=== PATIENT | female | born 1940 | race Caucasian/White ===

== ENCOUNTER → 2017-04-29 | Outpatient (CLI) | payer MEDICARE, OTHER ==
--- NOTE | 2017-04-29 13:14 | RADIOLOGY REPORT (SQ) ---
EXAM DESCRIPTION: SHOULDER RIGHT 2 OR MORE VIEWS COMPLETED DATE/TIME: 04/29/2017 12:57 pm REASON FOR STUDY: PAIN IN RIGHT SHOULDER M25.511 PAIN IN RIGHT SHOULDER M54.2 CERVICALGIA COMPARISON: None. NUMBER OF VIEWS: Three views. TECHNIQUE: Internal rotation, external rotation, and Y view images acquired of the right shoulder. LIMITATIONS: None. FINDINGS: MINERALIZATION: Normal. BONES: No acute fracture or dislocation. No worrisome bone lesions. JOINTS: There is narrowing of the glenohumeral joint. Subchondral cysts are seen in the humeral head and in the inferior aspect of the glenoid. Small marginal osteophyte is seen in the humeral head. VISUALIZED LUNGS AND RIBS: No pneumothorax. No rib fracture. SOFT TISSUES: No radiopaque foreign body. OTHER: No other significant finding. IMPRESSION: Glenohumeral degenerative joint disease. TECHNICAL DOCUMENTATION: JOB ID: [id number] [employer]- All Rights Reserved
--- NOTE | 2017-04-29 15:24 | RADIOLOGY REPORT (SQ) ---
EXAM DESCRIPTION: C SP 4 OR 5 VIEWS COMPLETED DATE/TIME: 04/29/2017 12:57 pm REASON FOR STUDY: PAIN IN RIGHT SHOULDER M25.511 PAIN IN RIGHT SHOULDER M54.2 CERVICALGIA COMPARISON: None. NUMBER OF VIEWS: Five views. TECHNIQUE: AP, lateral, obliques and odontoid radiographic images acquired of the cervical spine. LIMITATIONS: None. FINDINGS: MINERALIZATION: Osteopenia. ALIGNMENT: There is straightening of the upper cervical spine. VERTEBRAE: No acute compression changes are present. DISCS: Disc spaces are narrowed at C4-5 and C5-6. Uncovertebral osteophytes are present at these lev els. FORAMINA: There is mild narrowing of the right neural foramen at C4-5 secondary to uncovertebral oste ophytes and mild facet overgrowth. There is narrowing of the left neural foramina at C3-4 and C4-5 s econdary to uncovertebral osteophytes mild facet changes. LATERAL AND POSTERIOR ELEMENTS: Mild hypertrophic facet changes are present at multiple levels. HARDWARE: None in the spine. SOFT TISSUES: No masses or calcifications. Lung apices clear. OTHER: No other significant finding. IMPRESSION: Degenerative disc disease, spondylosis, and facet arthropathy as described. TECHNICAL DOCUMENTATION: JOB ID: [id number] [employer]- All Rights Reserved
== END ==
LOC: OD 12:30
PROVIDERS: ATTEND Physician Assistant
DX: M25.511 Pain in right shoulder (principal); M54.2 Cervicalgia
CPT/HCPCS: 72050

== ENCOUNTER → 2017-05-10 | Outpatient (CLI) | payer MEDICARE, OTHER ==
--- NOTE | 2017-05-10 10:34 | WOMENS IMAGING REPORT ---
EXAM DESCRIPTION: BONE DENSITY HIP/SPINE COMPLETED DATE/TIME: 05/10/2017 10:16 am REASON FOR STUDY: OSTEOPOROSIS; M81.0 Z12.31 ENCNTR SCREEN MAMMOGRAM FOR MALIGNANT NEOPLASM OF MEHUL M81.0 AGE-RELATED OSTEOPOROSIS W/O CURRENT PATHOLOGICAL FRAC COMPARISON: 07/30/2014 TECHNIQUE: Dual-Energy X-ray Absorptiometry (DEXA) of the AP Spine and Hip. LIMITATIONS: None. FINDINGS: LUMBAR SPINE: The bone mineral density (BMD) measured from L1-L4 in the AP projection correlates with a T-score of -3, which is osteoporosis as defined by the World Health Organization. -3.5% change since prior stud y. HIP: The bone mineral density (BMD) measured in the left hip correlates with a T-score of -3.3 in the femo ral neck, which is osteoporosis as defined by the World Health Organization. -4.4% change since prio r study. IMPRESSION: 1. LUMBAR SPINE: OSTEOPOROSIS. 2. HIP: OSTEOPOROSIS. COMMENT: The World Health Organization defines low BMD as follows: T-score: Normal: Greater than -1.0 Osteopenia: Between -1.0 and -2.5 Osteoporosis: Less than -2.5 without fractures Established osteoporosis: Less than -2.5 with fractures In general, you may wish to consider: Diagnosis Treatment Follow-up DEXA Normal BMD Prevention 2-3 years Osteopenia Prevention/Therapy 1-2 years Osteoporosis Therapy Yearly TECHNICAL DOCUMENTATION: JOB ID: [id number] [employer]- All Rights Reserved
--- NOTE | 2017-05-10 11:05 | WOMENS IMAGING REPORT ---
EXAM DESCRIPTION: 3D SCREENING MAMMO BILAT COMPLETED DATE/TIME: 05/10/2017 10:16 am REASON FOR STUDY: ROUTINE SCREENING; Z12.31 Z12.31 ENCNTR SCREEN MAMMOGRAM FOR MALIGNANT NEOPLASM O F MEHUL M81.0 AGE-RELATED OSTEOPOROSIS W/O CURRENT PATHOLOGICAL FRAC COMPARISON: 11/25/2015 TECHNIQUE: Standard craniocaudal and mediolateral oblique views of each breast recorded using digita l acquisition and breast tomosynthesis. LIMITATIONS: Pacemaker left. FINDINGS: Findings present which are benign by mammographic criteria. No suspicious masses, calcifi cations or architectural distortion. Pertinent benign findings: Calcifications both breasts. Read with the assistance of CAD. .[facility] - R2 Cenova Version 1.3 .[facility] - R2 Cenova Version 1.3 .[facility] - R2 Cenova Version 2.4 .[facility] - R2 Cenova Version 2.4 .[facility] - R2 [employer] Version 9.2 Benign mammographic findings may include one or more of the following: Smooth masses, popcorn/rim/co arse calcifications, asymmetries, post-procedure changes, and lesions with long-standing stability. IMPRESSION: BENIGN MAMMOGRAPHIC FINDINGS. BIRADS 2 BREAST DENSITY: c. The breasts are heterogeneously dense, which may obscure small masses. BIRAD: 2 BENIGN FINDING(S) RECOMMENDATION: RECOMMENDATION: ROUTINE SCREENING COMMENT: The patient has been notified of the results by letter per SA requirements. Additional no tification policies are in place for contacting patient with suspicious or incomplete findings. Quality ID #[id number]: The [employer] recommends an annual screening mammogram for women aged 40 years or over. This facility utilizes a reminder system to ensure that all patients receive reminder letters, and/or direct phone calls for appointments. This includes reminders for routine scr eening mammograms, diagnostic mammograms, or other Breast Imaging Interventions when appropriate. Th is patient will be placed in the appropriate reminder system. The [employer] (ACR) has developed recommendations for screening MRI of the breast s in certain patient populations, to be used in conjunction with mammography. Breast MRI surveillanc e may be appropriate for women with more than 20% lifetime risk of developing breast cancer as deter mined by genetic testing, significant family history of the disease, or history of mantle radiation f or Hodgkins Disease. ACR Practice Guidelines 2008. DBT Technology DBT is a type of tomographic mammography. With conventional mammography, overlapping breast tissue ma y make lesions difficult to detect, even with good compression. DBT uses an x-ray tube that rotates a round the breast, taking images at different angles. These images are then combined to create thin sl ices of the breast that the radiologist can view as a 3D reconstruction. The Hologic unit can perform full-field digital mammograms (2D imaging); or DBT (3D imaging); or both, in a combination mode that quickly performs both the mammogram and the tomosynthesis scan while the breast is still compressed. PQRS 6045F: Fluoroscopic imaging is not utilized for breast tomosynthesis. TECHNICAL DOCUMENTATION: FINDING NUMBER: (1) ASSESSMENT: (1) JOB ID: [id number] [employer]- All Rights Reserved
== END ==
LOC: WI 09:58
PROVIDERS: ATTEND Physician Assistant
DX: Z12.31 Encounter for screening mammogram for malignant neoplasm of breast (principal); M81.0 Age-related osteoporosis without current pathological fracture
CPT/HCPCS: 77063; 77080; G0202; 77067

== ENCOUNTER 2017-06-23 19:47 | Emergency (ER) | payer MEDICARE, OTHER ==
[2017-06-23] MEDS ORDERED: CLINDAMYCIN HCL 150 MG CAPSULE PO ONE (20:19)
--- NOTE | 2017-06-23 20:26 | ER Document Report ---
ED Extremity Problem, Lower - General Mode of Arrival: Wheelchair Information source: Patient TRAVEL OUTSIDE OF THE [place] IN LAST 30 DAYS: No <MELITON MARQUEZ - Last Filed: 06/23/17 20:56> <INDER WILKERSON - Last Filed: 06/23/17 21:12> - General Chief Complaint: Pedal Edema Stated Complaint: LEFT LEG SWELLING AND PAIN Time Seen by Provider: 06/23/17 20:09 Notes: Patient is a 76 year old female presenting to the emergency department for swelling, erythema and pain to her left lower extremity. Patient states that she noticed it Saturday and it has been getting slightly worse. Patient states that she has a dullness going up her left leg. Patient states she is on plavix and she had a recent heart valve transplant at [facility]. Patient is also taking Fosamax. (MELITON MARQUEZ) - Related Data Allergies/Adverse Reactions: benzocaine Allergy (Verified 06/23/17 20:24) ciprofloxacin [From Cipro] Allergy (Verified 06/23/17 20:24) lamotrigine [From Lamictal] Allergy (Verified 06/23/17 20:24) Penicillins Allergy (Verified 06/23/17 20:24) Sulfa (Sulfonamide Antibiotics) Allergy (Verified 06/23/17 20:24) Past Medical History - General Information source: Patient - Social History Smoking Status: Never Smoker Cigarette use (# per day): No Chew tobacco use (# tins/day): No Smoking Education Provided: No Frequency of alcohol use: None Drug Abuse: None Family History: None Patient has suicidal ideation: No Patient has homicidal ideation: No - Past Medical History Cardiac Medical History: Reports: Hx Hypertension Neurological Medical History: Reports: Hx Seizures Past Surgical History: Reports: Hx Abdominal Surgery - hiatal hernia, Hx Breast Surgery - biopsy, Hx Cardiac Surgery - mitral valve replacement, pacemaker, stent, Hx Orthopedic Surgery - knee - Immunizations Hx Diphtheria, Pertussis, Tetanus Vaccination: No <MELITON MARQUEZ - Last Filed: 06/23/17 20:56> Review of Systems - Review of Systems Constitutional: denies: Fever Musculoskeletal: See HPI Skin: See HPI Neurological/Psychological: No symptoms reported <MELITON MARQUEZ - Last Filed: 06/23/17 20:56> Physical Exam <MELITON MARQUEZ - Last Filed: 06/23/17 20:56> <INDER WILKERSON - Last Filed: 06/23/17 21:12> - Vital signs Vitals: Temp Pulse Resp BP Pulse Ox 98.4 F 76 18 177/67 H 97 06/23/17 19:58 06/23/17 19:58 06/23/17 19:58 06/23/17 19:58 06/23/17 19:58 - Notes Notes: GENERAL: Alert, interacts well. Mild distress. HEAD: Normocephalic, atraumatic. EYES: Pupils equal, round, and reactive to light. Extraocular movements intact. ENT: Oral mucosa moist, tongue midline. NECK: Full range of motion. Supple. Trachea midline. LUNGS: Clear to auscultation bilaterally, no wheezes, rales, or rhonchi. No respiratory distress. HEART: Regular rate and rhythm. 3/6 crescendo systolic murmur, best heard in the right upper sternal border. ABDOMEN: Soft, non-tender. Non-distended. Bowel sounds present in all 4 quadrants. EXTREMITIES: Moves all 4 extremities spontaneously. Circumferential erythema at the level of the left ankle just distal to the bilateral malleoli and anteriorly tracks along the left jasmine just below the knee. Area is tender to palpate, warm to touch, non-pitting edema, no discharge, no fluctuance. NEUROLOGICAL: Alert and oriented x3. Normal speech. PSYCH: Normal affect, normal mood. SKIN: Warm, dry, normal turgor. See extremity exam. (MELITON MARQUEZ) Course - Laboratory Result Diagrams: 06/23/17 20:36 <MELITON MARQUEZ - Last Filed: 06/23/17 20:56> - Laboratory Result Diagrams: 06/23/17 20:36 <INDER WILKERSON - Last Filed: 06/23/17 21:12> - Re-evaluation Re-evalutation: 06/23/17 20:58 Heart valve replacement was within the past year but not within the past few months therefore not a significant risk for DVT. No leukocytosis, no evidence of DVT, I will treat the patient with clindamycin as she is allergic to multiple antibiotics but does have a history of MRSA. Patient will be rechecked by her primary care physician within the next 48 hours and return for fevers. (INDER WILKERSON) - Vital Signs Vital signs: Temp Pulse Resp BP Pulse Ox 98.4 F 76 18 177/67 H 97 06/23/17 19:58 06/23/17 19:58 06/23/17 19:58 06/23/17 19:58 06/23/17 19:58 Discharge <MELITON MARQUEZ - Last Filed: 06/23/17 20:56> <INDER WILKERSON - Last Filed: 06/23/17 21:12> - Discharge Clinical Impression: Cellulitis of left leg without foot Hypertension Qualifiers: Hypertension type: essential hypertension Qualified Code(s): I10 - Essential ( primary) hypertension Condition: Stable Disposition: HOME, SELF-CARE Additional Instructions: Keep your leg elevated, take the clindamycin as directed, return for fevers or worsening of the redness. Be rechecked by your primary care physician within the next 48 hours. Prescriptions: Clindamycin HCl 300 mg PO QID #28 capsule Scribe Attestation: 06/23/17 21:12 I personally performed the services described in the documentation, reviewed and edited the documentation which was dictated to the scribe in my presence, and it accurately records my words and actions. (INDER WILKERSON) Scribe Documentation - Scribe Written by Adolfo:: Adolfo Smalls 06/23/17 20:55 acting as scribe for :: Fredy <MELITON MARQUEZ - Last Filed: 06/23/17 20:56>
[2017-06-23 20:46] LABS: ABSOLUTE BASOPHILS # (AUTO) 0.1 10^3/uL (0.0-0.2); ABSOLUTE EOSINOPHILS # (AUTO) 0.2 10^3/uL (0.0-0.6); ABSOLUTE LYMPHOCYTES (AUTO) 1.9 10^3/uL (0.5-4.7); ABSOLUTE MONOCYTES (AUTO) 1.1 10^3/uL (0.1-1.4); ABSOLUTE NEUT (AUTO) 5.8 10^3/uL (1.7-8.2); BASOPHILS % (AUTO) 1.2 % (0-2); EOSINOPHILS % (AUTO) 2.2 % (0-6); HEMATOCRIT 41.8 % (36.0-47.0); HEMOGLOBIN 14.4 g/dL (12.0-15.5); HGB HCT DIFFERENCE 1.4; LYMPHOCYTES % (AUTO) 20.9 % (13-45); MEAN CORPUSCULAR HEMOGLOBIN 31.5 pg (27.0-33.4); MEAN CORPUSCULAR HGB CONC 34.4 g/dL (32.0-36.0); MEAN CORPUSCULAR VOLUME 92 fl (80-97); MONOCYTES % (AUTO) 12.2 % (3-13); RED BLOOD COUNT 4.56 10^6/uL (3.72-5.28); SEGMENTED NEUTROPHILS % (AUTO) 63.5 % (42-78); WHITE BLOOD COUNT 9.1 10^3/uL (4.0-10.5)
[2017-06-23 21:40] VITALS: BP 151/76
== END 2017-06-23 21:40 | disposition home or self-care (01) ==
LOC: ER 19:47
DX: L03.116 Cellulitis of left lower limb (principal); R60.9 Edema, unspecified; M79.605 Pain in left leg; I10 Essential (primary) hypertension; Z88.3 Allergy status to other anti-infective agents; Z88.0 Allergy status to penicillin; Z88.2 Allergy status to sulfonamides; Z95.2 Presence of prosthetic heart valve; Z95.0 Presence of cardiac pacemaker; Z86.14 Personal history of Methicillin resistant Staphylococcus aureus infection
CPT/HCPCS: 99284; 36415; 85025; A9270

== ENCOUNTER → 2017-10-07 | Outpatient (CLI) | payer MEDICARE, OTHER ==
[2017-10-07 12:38] LABS: CHOLESTEROL 276.49 mg/dL (0-200); TRIGLYCERIDES 72 mg/dL (<150)
[2017-10-07 12:49] LABS: DIRECT LDL 158 mg/dL (<100)
== END ==
LOC: OD 11:47
PROVIDERS: ATTEND Internal Medicine
DX: I25.10 Atherosclerotic heart disease of native coronary artery without angina pectoris (principal); E78.4 Other hyperlipidemia; Z98.61 Coronary angioplasty status; Z95.2 Presence of prosthetic heart valve; I34.2 Nonrheumatic mitral (valve) stenosis; I10 Essential (primary) hypertension; I34.0 Nonrheumatic mitral (valve) insufficiency; I44.2 Atrioventricular block, complete; Z95.0 Presence of cardiac pacemaker; Z79.899 Other long term (current) drug therapy
CPT/HCPCS: 36415; 80061

== ENCOUNTER 2017-11-14 10:03 | Emergency (ER) | payer MEDICARE, OTHER ==
--- NOTE | 2017-11-14 10:21 | ER Document Report ---
ED Medical Screen (RME) - General Chief Complaint: Altered Mental Status Stated Complaint: HEADACHE, CONFUSION Time Seen by Provider: 11/14/17 10:19 Mode of Arrival: Wheelchair Information source: Patient, Parent Notes: 77 yr old female presents altered, pt was on plavix, stopped it for procedure, hit her head yesterday. I have greeted and performed a rapid initial assessment of this patient. A comprehensive ED assessment and evaluation of the patient, analysis of test results and completion of the medical decision making process will be conducted by additional ED providers. PHYSICAL EXAMINATION: GENERAL: elderly female HEAD: Atraumatic, normocephalic. EYES: Pupils equal round extraocular movements intact, conjunctiva are normal. ENT: Nares patent NECK: Normal range of motion LUNGS: No respiratory distress Musculoskeletal: Normal range of motion NEUROLOGICAL: Normal speech, normal gait. PSYCH: Normal mood, normal affect. SKIN: Warm, Dry, normal turgor, no rashes or lesions noted. TRAVEL OUTSIDE OF THE [place] IN LAST 30 DAYS: No - Related Data Allergies/Adverse Reactions: benzocaine Allergy (Verified 06/23/17 20:24) ciprofloxacin [From Cipro] Allergy (Verified 06/23/17 20:24) lamotrigine [From Lamictal] Allergy (Verified 06/23/17 20:24) Penicillins Allergy (Verified 06/23/17 20:24) Sulfa (Sulfonamide Antibiotics) Allergy (Verified 06/23/17 20:24) Past Medical History - Past Medical History Cardiac Medical History: Reports: Hx Hypertension Neurological Medical History: Reports: Hx Seizures Renal/ Medical History: Denies: Hx Peritoneal Dialysis Past Surgical History: Reports: Hx Abdominal Surgery - hiatal hernia, Hx Breast Surgery - biopsy, Hx Cardiac Surgery - mitral valve replacement, pacemaker, stent, Hx Orthopedic Surgery - knee - Immunizations Hx Diphtheria, Pertussis, Tetanus Vaccination: No History of Influenza Vaccine for 06/2017 - 11/2017 Season: Refused Physical Exam - Vital signs Vitals: Temp Pulse Resp BP Pulse Ox 97.9 F 66 14 150/69 H 98 11/14/17 10:10 11/14/17 10:10 11/14/17 10:10 11/14/17 10:10 11/14/17 10:10 Course - Vital Signs Vital signs: Temp Pulse Resp BP Pulse Ox 97.9 F 66 14 150/69 H 98 11/14/17 10:10 11/14/17 10:10 11/14/17 10:10 11/14/17 10:10 11/14/17 10:10
--- NOTE | 2017-11-14 11:28 | RADIOLOGY REPORT (SQ) ---
EXAM DESCRIPTION: CT HEAD WITHOUT COMPLETED DATE/TIME: 11/14/2017 10:44 am REASON FOR STUDY: altered COMPARISON: None. TECHNIQUE: Axial images acquired through the brain without intravenous contrast. Images reviewed wi th bone, brain and subdural windows. Images stored on PACS. All CT scanners at this facility use dose modulation, iterative reconstruction, and/or weight based d osing when appropriate to reduce radiation dose to as low as reasonably achievable (ALARA). [facility]: Dose Right [facility]: CareDose [facility]: Dose Right [facility]: Teradose 4D [facility]: Berrybenka RADIATION DOSE: CT Rad equipment meets quality standard of care and radiation dose reduction techniq ues were employed. CTDIvol: 49.0 mGy. DLP: 783 mGy-cm.mGy. LIMITATIONS: None. FINDINGS: VENTRICLES: Prominent. CEREBRUM: No masses. No hemorrhage. No midline shift. Areas of low density in the white matter mos t likely due to chronic micro-vascular ischemic change. No evidence for acute infarction. CEREBELLUM: No masses. No hemorrhage. No alteration of density. No evidence for acute infarction. EXTRAAXIAL SPACES: Age-related involutional change. No fluid collections. No masses. ORBITS AND GLOBE: No intra- or extraconal masses. Normal contour of globe without masses. CALVARIUM: No fracture. PARANASAL SINUSES: No fluid or mucosal thickening. SOFT TISSUES: No mass or hematoma. OTHER: No other significant finding. IMPRESSION: CHRONIC CHANGES OF ATROPHY AND MICROVASCULAR ISCHEMIA. NO ACUTE PROCESS. EVIDENCE OF ACUTE STROKE: NO. TECHNICAL DOCUMENTATION: JOB ID: [id number] Quality ID # [id number]: Final reports with documentation of one or more dose reduction techniques (e.g., Au tomated exposure control, adjustment of the mA and/or kV according to patient size, use of iterative reconstruction technique) 2010 [employer]- All Rights Reserved Reading location - IP/workstation name: [email or web address]
--- NOTE | 2017-11-14 12:25 | RADIOLOGY REPORT (SQ) ---
EXAM DESCRIPTION: CHEST PA/LAT COMPLETED DATE/TIME: 11/14/2017 11:01 am REASON FOR STUDY: altered COMPARISON: 2009 EXAM PARAMETERS: NUMBER OF VIEWS: two views TECHNIQUE: Digital Frontal and Lateral radiographic views of the chest acquired. RADIATION DOSE: NA LIMITATIONS: none FINDINGS: LUNGS AND PLEURA: No opacities, masses or pneumothorax. No pleural effusion. MEDIASTINUM AND HILAR STRUCTURES: Postoperative changes with transvenous pacer. HEART AND VASCULAR STRUCTURES: Heart is borderline for size, appearing smaller than on prior study 20 10. Operative change noted. BONES: Kyphotic thoracic spine. No severe compression fractures identified. HARDWARE: The transvenous pacer. Operative valve change the heart. OTHER: No other significant finding. IMPRESSION: Nothing acute. The heart appears smaller than on prior study. Transvenous pacer and op erative change noted. TECHNICAL DOCUMENTATION: JOB ID: [id number] [employer]- All Rights Reserved Reading location - IP/workstation name: [email or web address]
--- NOTE | 2017-11-14 12:39 | ER Document Report ---
ED General - General Chief Complaint: Altered Mental Status Stated Complaint: HEADACHE, CONFUSION Time Seen by Provider: 11/14/17 10:19 Mode of Arrival: Wheelchair TRAVEL OUTSIDE OF THE [place] IN LAST 30 DAYS: No - HPI Patient complains to provider of: headache/confusion Onset: Yesterday Onset/Duration: Gradual Notes: Patient presents here with her daughter. She states that she was on Plavix for approximately 1 year for an aortic valve replacement and it was discontinued the of this month. She saw her business management professor after having a stress test on the and he took her off the Plavix at that time. States this past Saturday she was sitting on her daughter's bed talking to her and she was bent over perhaps looking at her cat when she brought her head up and hit her left latter-day area. Yesterday patient states she was watching [facility] [employer] which she does almost daily. She states that the story line was not making any sense and at one time she thought the characters in the commercial or actually on her soap opera. The daughter stated she had difficulty trying to find the buttons on the removed to turn off the TV. Patient states around that time headache developed. It was global in nature. There is no visual deficits. Patient did have nausea and emesis 1. She states this morning when she awoke she had a mild headache and she was slightly confused. The daughter drove her to the emergency department she states she could not really recall the way and she should know it. - Related Data Allergies/Adverse Reactions: benzocaine Allergy (Verified 06/23/17 20:24) ciprofloxacin [From Cipro] Allergy (Verified 06/23/17 20:24) lamotrigine [From Lamictal] Allergy (Verified 06/23/17 20:24) Penicillins Allergy (Verified 06/23/17 20:24) Sulfa (Sulfonamide Antibiotics) Allergy (Verified 06/23/17 20:24) Past Medical History - General Information source: Patient, Parent - Social History Smoking Status: Never Smoker Frequency of alcohol use: None Drug Abuse: None Family History: None Patient has suicidal ideation: No Patient has homicidal ideation: No - Past Medical History Cardiac Medical History: Reports: Hx Hypertension Neurological Medical History: Reports: Hx Seizures Endocrine Medical History: Reports: None Renal/ Medical History: Reports: None. Denies: Hx Peritoneal Dialysis Malignancy Medical History: Reports: None GI Medical History: Reports: None Psychiatric Medical History: Reports: None Traumatic Medical History: Reports: None Past Surgical History: Reports: Hx Abdominal Surgery - hiatal hernia, Hx Breast Surgery - biopsy, Hx Cardiac Surgery - mitral valve replacement, pacemaker, stent, Hx Orthopedic Surgery - knee - Immunizations Hx Diphtheria, Pertussis, Tetanus Vaccination: No Review of Systems - Review of Systems Constitutional: No symptoms reported EENT: No symptoms reported Cardiovascular: No symptoms reported Respiratory: No symptoms reported Gastrointestinal: Nausea, Vomiting Genitourinary: No symptoms reported Female Genitourinary: No symptoms reported Musculoskeletal: No symptoms reported Skin: No symptoms reported Hematologic/Lymphatic: No symptoms reported Neurological/Psychological: See HPI, Confusion, Headaches. denies: Dementia, Depression, Anxiety, Hallucinations, Sensory change, Weakness, Gait changes, Loss of power, Paralysis, Seizure, Lost consciousness, Speech impairment, Numbness, Tingling, Tremor Physical Exam - Vital signs Vitals: Temp Pulse Resp BP Pulse Ox 97.9 F 66 14 150/69 H 98 11/14/17 10:10 11/14/17 10:10 11/14/17 10:10 11/14/17 10:10 11/14/17 10:10 - Notes Notes: PHYSICAL EXAMINATION: GENERAL: Well-appearing, well-nourished and in no acute distress. HEAD: Atraumatic, normocephalic. EYES: Pupils equal round and reactive to light, extraocular movements intact, conjunctiva are normal. Nystagmus not found. ENT: Nares patent, oropharynx clear without exudates. Moist mucous membranes. NECK: Normal range of motion, supple without lymphadenopathy LUNGS: Breath sounds clear to auscultation bilaterally and equal. No wheezes rales or rhonchi. HEART: Regular rate and rhythm without murmurs ABDOMEN: Soft, nontender, nondistended abdomen. No guarding, no rebound. No masses appreciated. Female : deferred Musculoskeletal: Normal range of motion, no pitting or edema. No cyanosis. NEUROLOGICAL: Cranial nerves grossly intact. Normal speech, normal gait. Normal sensory, motor exams. Cerebellar exam WNL. PSYCH: Normal mood, normal affect. SKIN: Warm, Dry, normal turgor, no rashes or lesions noted. Course - Re-evaluation Re-evalutation: 11/14/17 1302 I discussed LP with patient and her daughter including risks of headcahe, infection, bleeding. pt. states she will think about it and let me know. 11/14/17 14:01 I went back in to again discuss the LP and patient gave consent. i told her that the Ct scan does not 100% rule out a "brain bleed" especially if headache started more than 6 hours ago. Pt.'s headache now started 24 hours ago. 11/14/17 15:00 Pt. tolerated LP without any incident. Afterwards, She stated her headache was improved and "only felt like a mild headache you would take tylenol for" 11/14/17 16:08 Labs- All tests 24 hr 11/14/17 11/14/17 11/14/17 12:17 12:17 12:17 WBC 10.5 RBC 4.40 Hgb 13.4 Hct 39.5 MCV 90 MCH 30.4 MCHC 33.9 RDW 13.7 Plt Count 126 L Seg Neutrophils % 83.0 H Lymphocytes % 9.3 L Monocytes % 6.9 Eosinophils % 0.4 Basophils % 0.4 Absolute Neutrophils 8.7 H Absolute Lymphocytes 1.0 Absolute Monocytes 0.7 Absolute Eosinophils 0.0 Absolute Basophils 0.0 PT 13.3 INR 0.94 VBG pH VBG pCO2 VBG HCO3 VBG Base Excess Sodium 136.5 L Potassium 3.8 Chloride 101 Carbon Dioxide 25 Anion Gap 11 BUN 11 Creatinine 0.50 L Est GFR ( Amer) > 60 Est GFR (Non-Af Amer) > 60 Glucose 117 H Lactic Acid Calcium 8.4 Total Bilirubin 0.7 Direct Bilirubin 0.4 Neonat Total Bilirubin Not Reportable Neonat Direct Bilirubin Not Reportable Neonat Indirect Bili Not Reportable AST 22 ALT 23 Alkaline Phosphatase 81 Total Protein 6.6 Albumin 4.1 Urine Color Urine Appearance Urine pH Ur Specific [place] Urine Protein Urine Glucose (UA) Urine Ketones Urine Blood Urine Nitrite Urine Bilirubin Urine Urobilinogen Ur Leukocyte Esterase Urine WBC (Auto) Urine RBC (Auto) U Hyaline Cast (Auto) Squamous Epi Cells Auto Urine Mucus (Auto) Urine Ascorbic Acid Fluid Tube Number CSF Volume CSF Appearance CSF Color CSF WBC CSF RBC CSF Color (4) CSF Glucose CSF Total Protein 11/14/17 11/14/17 11/14/17 12:17 12:17 13:08 WBC RBC Hgb Hct MCV MCH MCHC RDW Plt Count Seg Neutrophils % Lymphocytes % Monocytes % Eosinophils % Basophils % Absolute Neutrophils Absolute Lymphocytes Absolute Monocytes Absolute Eosinophils Absolute Basophils PT INR VBG pH 7.42 VBG pCO2 42.6 VBG HCO3 27.0 VBG Base Excess 2.2 Sodium Potassium Chloride Carbon Dioxide Anion Gap BUN Creatinine Est GFR ( Amer) Est GFR (Non-Af Amer) Glucose Lactic Acid 1.3 Calcium Total Bilirubin Direct Bilirubin Neonat Total Bilirubin Neonat Direct Bilirubin Neonat Indirect Bili AST ALT Alkaline Phosphatase Total Protein Albumin Urine Color YELLOW Urine Appearance CLEAR Urine pH 7.0 Ur Specific [place] 1.014 Urine Protein NEGATIVE Urine Glucose (UA) NEGATIVE Urine Ketones 20 H Urine Blood NEGATIVE Urine Nitrite NEGATIVE Urine Bilirubin NEGATIVE Urine Urobilinogen NEGATIVE Ur Leukocyte Esterase NEGATIVE Urine WBC (Auto) 2 Urine RBC (Auto) 1 U Hyaline Cast (Auto) 2 Squamous Epi Cells Auto <1 Urine Mucus (Auto) OCC Urine Ascorbic Acid 20 H Fluid Tube Number CSF Volume CSF Appearance CSF Color CSF WBC CSF RBC CSF Color (4) CSF Glucose CSF Total Protein 11/14/17 11/14/17 11/14/17 14:45 14:45 14:45 WBC RBC Hgb Hct MCV MCH MCHC RDW Plt Count Seg Neutrophils % Lymphocytes % Monocytes % Eosinophils % Basophils % Absolute Neutrophils Absolute Lymphocytes Absolute Monocytes Absolute Eosinophils Absolute Basophils PT INR VBG pH VBG pCO2 VBG HCO3 VBG Base Excess Sodium Potassium Chloride Carbon Dioxide Anion Gap BUN Creatinine Est GFR ( Amer) Est GFR (Non-Af Amer) Glucose Lactic Acid Calcium Total Bilirubin Direct Bilirubin Neonat Total Bilirubin Neonat Direct Bilirubin Neonat Indirect Bili AST ALT Alkaline Phosphatase Total Protein Albumin Urine Color Urine Appearance Urine pH Ur Specific [place] Urine Protein Urine Glucose (UA) Urine Ketones Urine Blood Urine Nitrite Urine Bilirubin Urine Urobilinogen Ur Leukocyte Esterase Urine WBC (Auto) Urine RBC (Auto) U Hyaline Cast (Auto) Squamous Epi Cells Auto Urine Mucus (Auto) Urine Ascorbic Acid Fluid Tube Number 1 CSF Volume 4.0 4.0 CSF Appearance CLEAR CLEAR CSF Color COLORLESS CSF WBC 2 5 CSF RBC 52 3 CSF Color (4) COLORLESS CSF Glucose 63 CSF Total Protein 63 H 11/14/17 16:10 Patient states her headache feels even better now. I did go over the results with her and her daughter. I told them to have the patient return if she has any normal symptoms occluded but not limited to slurred speech, blurry vision or loss of vision, weakness in her arms or legs. - Vital Signs Vital signs: Temp Pulse Resp BP Pulse Ox 97.9 F 66 15 150/69 H 97 11/14/17 10:10 11/14/17 10:10 11/14/17 12:00 11/14/17 10:10 11/14/17 12:00 - Laboratory Result Diagrams: 11/14/17 12:17 11/14/17 12:17 Laboratory results interpreted by me: 11/14/17 11/14/17 11/14/17 12:17 12:17 13:08 Plt Count 126 L Seg Neutrophils % 83.0 H Lymphocytes % 9.3 L Absolute Neutrophils 8.7 H Sodium 136.5 L Creatinine 0.50 L Glucose 117 H Urine Ketones 20 H Urine Ascorbic Acid 20 H CSF Total Protein 11/14/17 14:45 Plt Count Seg Neutrophils % Lymphocytes % Absolute Neutrophils Sodium Creatinine Glucose Urine Ketones Urine Ascorbic Acid CSF Total Protein 63 H - Diagnostic Test Radiology reviewed: Image reviewed, Reports reviewed Procedures - Lumbar Puncture Lumbar puncture Time completed: 14:40 Consent obtained: Yes Lumbar puncture pre-procedure: Betadine prep applied Patient position: Sitting Needle size: 20 Lumbar puncture location: L4-L5 Anesthetic type: 1% Lidocaine mL's of anesthetic: 3 Amount/type of drainage: clear Number of attempts: 2 Complications: No Discharge - Discharge Clinical Impression: Confusion with non-focal neuro exam Headache Qualifiers: Headache chronicity pattern: acute headache Intractability: not intractable Condition: Stable Disposition: HOME, SELF-CARE Instructions: Headache ([facility]) Additional Instructions: Follow up with your physician tomorrow for further care or return to the ED IMMEDIATELY if symptoms worsen or new concerns occur. If you cannot afford to follow up with your primary care physician a list of low cost clinics have been provided at the end of your discharge papers as well. Referrals: YULISA CLAYTON MD [Primary Care Provider] - Follow up tomorrow
[2017-11-14 12:41] LABS: ABSOLUTE MONOCYTES (AUTO) 0.7 10^3/uL (0.1-1.4); ABSOLUTE NEUT (AUTO) 8.7 10^3/uL (1.7-8.2); BASOPHILS % (AUTO) 0.4 % (0-2); EOSINOPHILS % (AUTO) 0.4 % (0-6); HEMATOCRIT 39.5 % (36.0-47.0); HEMOGLOBIN 13.4 g/dL (12.0-15.5); LYMPHOCYTES % (AUTO) 9.3 % (13-45); MEAN CORPUSCULAR HEMOGLOBIN 30.4 pg (27.0-33.4); MEAN CORPUSCULAR HGB CONC 33.9 g/dL (32.0-36.0); MEAN CORPUSCULAR VOLUME 90 fl (80-97); MONOCYTES % (AUTO) 6.9 % (3-13); PLATELET COUNT 126 10^3/uL (150-450); RED CELL DISTRIBUTION WIDTH 13.7 % (11.5-14.0); TOTAL CELLS COUNTED % (AUTO) 100 %; VENOUS BLOOD BASE EXCESS 2.2 mmol/L; VENOUS BLOOD PCO2 42.6 mmHg (35-63); VENOUS BLOOD PH 7.42 (7.30-7.42); WHITE BLOOD COUNT 10.5 10^3/uL (4.0-10.5)
[2017-11-14 12:47] LABS: INTERNATIONAL RATION (INR) 0.94; PROTHROMBIN TIME 13.3 SEC (11.4-15.4)
[2017-11-14] MEDS ORDERED: NORMAL SALINE 500 ML IV ONE (12:47)
[2017-11-14] MEDS ORDERED: METOCLOPRAMIDE HCL INJ/PF 10 MG/2 ML SDV IV ONE (12:47)
--- NOTE | 2017-11-14 12:59 | EKG REPORT ---
SEVERITY:- ABNORMAL ECG - ATRIAL-SENSED VENTRICULAR-PACED RHYTHM : Confirmed by: Willard Rob MD 14-Nov-2017 12:58:57
[2017-11-14 13:02] LABS: ALANINE AMINOTRANSFERASE 23 U/L (9-52); ALBUMIN 4.1 g/dL (3.5-5.0); ALKALINE PHOSPHATASE 81 U/L (38-126); ANION GAP 11 (5-19); ASPARTATE AMINO TRANSFERASE 22 U/L (14-36); BILIRUBIN,DIRECT 0.4 mg/dL (0.0-0.4); BILIRUBIN,TOTAL 0.7 mg/dL (0.2-1.3); BLOOD UREA NITROGEN 11 mg/dL (7-20); CALCIUM 8.4 mg/dL (8.4-10.2); CARBON DIOXIDE 25 mmol/L (22-30); CHLORIDE 101 mmol/L (98-107); GLUCOSE 117 mg/dL (75-110); POTASSIUM 3.8 mmol/L (3.6-5.0); SODIUM 136.5 mmol/L (137-145); TOTAL PROTEIN 6.6 g/dL (6.3-8.2)
[2017-11-14 13:31] LABS: APPEARANCE,URINE CLEAR; BILIRUBIN,URINE NEGATIVE (NEGATIVE); COLOR,URINE YELLOW; GLUCOSE, URINE NEGATIVE (NEGATIVE); KETONES,URINE 20 mg/dL (NEGATIVE); LEUKOCYTE ESTERASE,URINE NEGATIVE (NEGATIVE); NITRITE,URINE NEGATIVE (NEGATIVE); PROTEIN,URINE NEGATIVE (NEGATIVE); URINE SPECIFIC GRAVITY 1.014; UROBILINOGEN,URINE NEGATIVE mg/dL (<2.0)
[2017-11-14] MEDS ORDERED: LIDOCAINE 1% INJ-PF (10 MG/ML) 30 ML SDV INJ ONE (13:59)
[2017-11-14] MEDS ORDERED: NORMAL SALINE 1000 ML 1,000 ML IV ONE (14:53)
[2017-11-14] MEDS ORDERED: DIAZEPAM INJ 10 MG/2 ML DISP.SYRIN IV ONE (14:57)
[2017-11-14 15:47] LABS: GLUCOSE,CSF 63 mg/dL (40-70); PROTEIN,CSF 63 mg/dL (12-60)
[2017-11-14 15:59] LABS: CSF TUBE NUMBER 1
[2017-11-14 16:00] LABS: APPEARANCE ALL TUBES CLEAR; COLOR TUBE 4 COLORLESS
[2017-11-14 16:01] LABS: RED BLOOD CELL,CSF 52 /uL (0-10)
[2017-11-14 16:02] LABS: WHITE BLOOD CELL,CSF 2 /uL (0-5)
[2017-11-14 16:03] LABS: APPEARANCE ALL TUBES CLEAR; COLOR ALL TUBES COLORLESS
[2017-11-14 16:04] LABS: RED BLOOD CELL,CSF 3 /uL (0-10); WHITE BLOOD CELL,CSF 5 /uL (0-5)
[2017-11-14 16:09] LABS: CSF TUBE NUMBER 4
[2017-11-14 16:30] VITALS: BP 108/91
== END 2017-11-14 16:37 | disposition home or self-care (01) ==
LOC: ER 10:03
DX: R51 Headache (principal); R11.2 Nausea with vomiting, unspecified; R41.0 Disorientation, unspecified; I10 Essential (primary) hypertension; Z95.2 Presence of prosthetic heart valve; Z95.0 Presence of cardiac pacemaker; Z88.8 Allergy status to other drugs, medicaments and biological substances; Z88.1 Allergy status to other antibiotic agents; Z88.0 Allergy status to penicillin; Z88.2 Allergy status to sulfonamides
CPT/HCPCS: 93005; 99285; 96361; 96374; 96375; 36415; 87040; 87070; 87086; 87205; 85025; 85610; 89050; 82945; 84157; 80053; 81001; 82803; 83605; 71046; 70450; 93010; 62270; J3360; J3490; J2765; J7030; J7040

== ENCOUNTER → 2018-02-13 | Outpatient (CLI) | payer MEDICARE, OTHER ==
--- NOTE | 2018-02-13 11:41 | RADIOLOGY REPORT (SQ) ---
EXAM DESCRIPTION: BARIUM SWALLOW ESOPHAGUS COMPLETED DATE/TIME: 02/13/2018 9:43 am REASON FOR STUDY: ERUCTATION (R14.2) R14.2 ERUCTATION COMPARISON: Two-view chest 11/14/2017 TECHNIQUE: Under fluoroscopic guidance, patient ingested effervescent granules followed by thick and thin barium. Fluoroscopic spot images and routine radiographic images acquired and stored on PACS. 12 MM BARIUM TABLET GIVEN: Yes No delay in passage of the 12 mm barium tablet LIMITATIONS: None. FLUOROSCOPY TIME: FLUORO TIME: 3.4 minutes 6 series of digital images saved to PACS. FINDINGS: NEUROMUSCULAR COORDINATION OF SWALLOW: Normal. No aspiration. ESOPHAGEAL MOTILITY: Tertiary contractions, with mild dysmotility. No esophageal spasm. ESOPHAGEAL MUCOSA: Normal mucosa without masses or ulceration. GASTRO-ESOPHAGEAL JUNCTION: Tiny hiatal hernia without gastroesophageal reflux. NON-GI TRACT STRUCTURES: No significant finding. OTHER: No other significant finding. IMPRESSION: Mild esophageal dysmotility. Tiny hiatal hernia without gastroesophageal reflux, distal esophageal stricture or mucosal irregulari ty COMMENT: Quality ID 145: Final reports for procedures using fluoroscopy that document radiation exp osure indices, or exposure time and number of fluorographic images (if radiation exposure indices are not available) TECHNICAL DOCUMENTATION: JOB ID: [id number] [employer]- All Rights Reserved Reading location - IP/workstation name: [facility]-[email or web address]
== END ==
LOC: RAD 08:40
PROVIDERS: ATTEND Physician Assistant
DX: R14.2 Eructation (principal)
CPT/HCPCS: 74220

== ENCOUNTER → 2018-03-04 | Outpatient (CLI) | payer MEDICARE, OTHER ==
[2018-03-04 11:49] LABS: ALANINE AMINOTRANSFERASE 28 U/L (9-52); ALBUMIN 4.3 g/dL (3.5-5.0); ALKALINE PHOSPHATASE 65 U/L (38-126); ASPARTATE AMINO TRANSFERASE 31 U/L (14-36); BILIRUBIN,DIRECT 0.3 mg/dL (0.0-0.4); BILIRUBIN,TOTAL 0.6 mg/dL (0.2-1.3); CHOLESTEROL 260.47 mg/dL (0-200); TOTAL PROTEIN 7.2 g/dL (6.3-8.2); TRIGLYCERIDES 75 mg/dL (<150)
[2018-03-04 12:01] LABS: DIRECT LDL 144 mg/dL (<100)
== END ==
LOC: OD 10:20
PROVIDERS: ATTEND Internal Medicine
DX: I25.10 Atherosclerotic heart disease of native coronary artery without angina pectoris (principal); I10 Essential (primary) hypertension; E78.5 Hyperlipidemia, unspecified; Z95.0 Presence of cardiac pacemaker; Z95.5 Presence of coronary angioplasty implant and graft; Z79.899 Other long term (current) drug therapy
CPT/HCPCS: 36415; 80061; 80076

== ENCOUNTER → 2018-06-24 | Outpatient (CLI) | payer MEDICARE, OTHER ==
--- NOTE | 2018-06-24 13:57 | WOMENS IMAGING REPORT ---
EXAM DESCRIPTION: 3D SCREENING MAMMO BILAT COMPLETED DATE/TIME: 06/24/2018 10:02 am REASON FOR STUDY: SCREENING MAMMO Z12.31 ENCNTR SCREEN MAMMOGRAM FOR MALIGNANT NEOPLASM OF MEHUL COMPARISON: 05/10/2017 and 11/25/2015. TECHNIQUE: Standard craniocaudal and mediolateral oblique views of each breast recorded using digita l acquisition and breast tomosynthesis. LIMITATIONS: None. FINDINGS: Findings present which are benign by mammographic criteria. No suspicious masses, calcifi cations or architectural distortion. Pertinent benign findings: Extensive bilateral calcifications appear unchanged. Read with the assistance of CAD. .[facility] - R2 Cenova Version 1.3 .[facility] Imaging - R2 Cenova Version 1.3 .[facility] - R2 Cenova Version 2.4 .[facility] - R2 Cenova Version 2.4 .[facility] - R2 Maintenance Mgr Version 9.2 Benign mammographic findings may include one or more of the following: Smooth masses, popcorn/rim/co arse calcifications, asymmetries, post-procedure changes, and lesions with long-standing stability. IMPRESSION: BENIGN MAMMOGRAPHIC FINDINGS. BIRADS 2 BREAST DENSITY: c. The breasts are heterogeneously dense, which may obscure small masses. BIRAD: 2 BENIGN FINDING(S) RECOMMENDATION: RECOMMENDATION: ROUTINE SCREENING COMMENT: The patient has been notified of the results by letter per SA requirements. Additional no tification policies are in place for contacting patient with suspicious or incomplete findings. Quality ID #225: The [employer] recommends an annual screening mammogram for women aged 40 years or over. This facility utilizes a reminder system to ensure that all patients receive reminder letters, and/or direct phone calls for appointments. This includes reminders for routine scr eening mammograms, diagnostic mammograms, or other Breast Imaging Interventions when appropriate. Th is patient will be placed in the appropriate reminder system. The [employer] [place] (ACR) has developed recommendations for screening MRI of the breast s in certain patient populations, to be used in conjunction with mammography. Breast MRI surveillanc e may be appropriate for women with more than 20% lifetime risk of developing breast cancer as deter mined by genetic testing, significant family history of the disease, or history of mantle radiation f or Hodgkins Disease. ACR Practice Guidelines 2008. DBT Technology DBT is a type of tomographic mammography. With conventional mammography, overlapping breast tissue ma y make lesions difficult to detect, even with good compression. DBT uses an x-ray tube that rotates a round the breast, taking images at different angles. These images are then combined to create thin sl ices of the breast that the radiologist can view as a 3D reconstruction. The AMENDIA unit can perform full-field digital mammograms (2D imaging); or DBT (3D imaging); or both, in a combination mode that quickly performs both the mammogram and the tomosynthesis scan while the breast is still compressed. PQRS 6045F: Fluoroscopic imaging is not utilized for breast tomosynthesis. TECHNICAL DOCUMENTATION: FINDING NUMBER: (1) ASSESSMENT: (1) JOB ID: [id number] [employer]- All Rights Reserved Reading location - IP/workstation name: [facility]-[email or web address]
== END ==
LOC: WI 09:27
PROVIDERS: ATTEND Family Medicine
DX: Z12.31 Encounter for screening mammogram for malignant neoplasm of breast (principal)
CPT/HCPCS: 77063; 77067

== ENCOUNTER 2018-12-25 09:37 | Day surgery (SDC) | payer MEDICARE, OTHER ==
[~2018-12-25 09:37] MED LIST: KETOROLAC TROMETHAMINE 0.45% 4 DROP/0.4 ML DROPERETTE OS PRN
[2018-12-25] MEDS ORDERED: LIDOCAINE 1%/PHENYLEPHRINE 1.5% 1 ML VIAL ONE (10:12)
[2018-12-25] MEDS ORDERED: EPINEPHRINE INJ/PF 1 MG/1 ML AMPULE ONE (10:12)
[2018-12-25] MEDS ORDERED: CHONDR SU A NA/HYALUR INTRAOC KIT (SURGICARE) ONE (10:12)
[2018-12-25] MEDS: BESIFLOXACIN HCL 0.6% OPH SUSP 5 ML BOTTLE OS PRN ×4 (10:44→11:52)
[2018-12-25] MEDS: CYCLOPENTOLATE 0.2%/PHENYLEPHRINE 1% OPH SOLN 2 ML OS PRN ×3 (10:44→11:06)
[2018-12-25] MEDS: TROPICAMIDE 1% OPH SOLN 3 ML OS PRN ×3 (10:44→11:06)
[2018-12-25] MEDS: TETRACAINE HCL 0.5% OPH SOLN 4 ML OS PRN ×3 (10:44→11:30)
[2018-12-25] MEDS ORDERED: MIDAZOLAM 2 MG/2 ML INJ ONE (11:09)
[2018-12-25] MEDS: DORZOLAMIDE HCL 2%/TIMOLOL MALEAT 0.5% OPH SOLN 10 ML OS PRN ×2 (11:52)
--- NOTE | 2018-12-25 20:49 | [facility]ARE OPERATIVE REPORT E ---
[facility] Operative Report NAME: JUNE LEDESMA AGE: 78Y DATE OF SURGERY: 12/25/2018 ROOM: PREOPERATIVE DIAGNOSIS: CATARACT, LEFT EYE. POSTOPERATIVE DIAGNOSIS: CATARACT, LEFT EYE. OPERATION: Cataract extraction with insertion of an IOL of the left eye. SURGEON: JOANN MILLER M.D. ANESTHESIA: Topical. PROCEDURE: After obtaining appropriate consent, the patient's left eye was prepped and draped in sterile fashion as well as the surgeon in a sterile manner and cataract surgery was started. First a paracentesis blade was used to make a side-port incision. Viscoelastic was used to inflate the anterior chamber. Next a 2.4 mm incision was made with a 2.4 mm blade, clear corneal temporally. A continuous capsulorrhexis was made using a cystotome and Utrata forceps. Following this hydrodissection was carried out to make the lens fully loose and mobile and it was rotated 90 degrees. Following this, a xhuhgk-hni-fkirwtv technique was used to phacoemulsify the lens with a CDE of 15.22. The remaining cortex was removed with irrigation/aspiration. Provisc was instilled into the capsular bag to inflate the bag. A SN60WF, 17.0 diopter lens was placed. The remaining viscoelastic material was removed with irrigation/aspiration. Following this, the incision was found to be watertight. Besivance was instilled into the eye and a protective shield was placed over the eye. The patient returned to the postoperative recovery in stable condition. DICTATING PHYSICIAN: JOANN MILLER M.D. [id number] PHY#: [id number] ID: [id number] JOB#: [id number] ACCT: [id number] cc:JOANN MILLER M.D. >
--- NOTE | 2018-12-25 20:50 | DISCHARGE SUMMARY E ---
Discharge Summary NAME: JUNE LEDESMA : 1940 AGE: 78Y ADMITTED: 12/25/2018 DISCHARGED: 12/25/2018 FINAL DIAGNOSIS: Cataract, left eye. HOSPITAL COURSE: This is a 78-year-old female who underwent cataract extraction of the left eye. She underwent surgery because she was having difficulty seeing small print. She should be on a regular diet. No bending at her waist, no heavy lifting. She should use Besivance, Ilevro and Durezol at 3:00 p.m. and 8:00 p.m. Sleep with a rigid shield. I will see her for a 1-day postoperative tomorrow. DICTATING PHYSICIAN: JOANN MILLER M.D. [id number] PHY#: [id number] ID: [id number] JOB#: [id number] ACCT: [id number] cc:JOANN MILLER M.D. >
== END 2018-12-25 12:51 | disposition home or self-care (01) ==
LOC: SC 09:37
PROVIDERS: ATTEND Internal Medicine
DX: H25.812 Combined forms of age-related cataract, left eye (principal); H57.03 Miosis; I10 Essential (primary) hypertension; E07.9 Disorder of thyroid, unspecified; Z79.899 Other long term (current) drug therapy; Z88.0 Allergy status to penicillin; Z88.2 Allergy status to sulfonamides; Z88.8 Allergy status to other drugs, medicaments and biological substances; Z95.0 Presence of cardiac pacemaker
CPT/HCPCS: 66984; V2632; J2250; J3490 ×2; A9270; J0171; J2370; 142

== ENCOUNTER 2019-06-19 16:23 | Emergency (ER) | payer MEDICARE, OTHER ==
[2019-06-19 16:32] VITALS: BP 162/65
[2019-06-19] MEDS ORDERED: DIPH/PERTUSS(ACELL)/TETANUS VAC/PF 0.5 ML SYR (>=10YO) IM ONE (17:07)
--- NOTE | 2019-06-19 17:11 | ER Document Report ---
HPI - HPI Time Seen by Provider: 06/19/19 16:58 Notes: Patient is a 78-year-old female with history of hypertension, not currently on any blood thinners, who presents for staple removal from her left scalp that was placed 2 weeks ago in [place]. Patient states that she had a head injury wh ile playing [employer] golf. She did not lose conscious. Patient states that she has been feeling well since then and has not noticed any redness, pain, drainage, or illness. She has no other concerns or complaints. Unknown last tetanus and she did not receive a tetanus in [place]. Denies any headache, fever, neck pain, changes in vision/speech/mentation/hearing, URI, sore throat, chest pain, palpitations, syncope, cough, shortness of breath, wheeze, dyspnea, abdominal pain, nausea/vomiting/diarrhea, urinary retention, dysuria, hematuria, loss of control of bowel or bladder, numbness/tingling, saddle anesthesia, muscle paralysis/weakness, or rash. - ROS Systems Reviewed and Negative: Yes All other systems reviewed and negative Past Medical History - Social History Smoking Status: Never Smoker Family History: None - Past Medical History Cardiac Medical History: Reports: Hx Hypertension Denies: Hx Heart Attack Pulmonary Medical History: Denies: Hx Asthma Neurological Medical History: Reports: Hx Seizures - ?? HAD BLACKOUT THEN PACEMAKER PUT IN NO SEIZURE. Denies: Hx Cerebrovascular Accident Renal/ Medical History: Denies: Hx Peritoneal Dialysis GI Medical History: Reports: Hx Hiatal Hernia - SURG, Hx Ulcer. Denies: Hx Hepatitis Infectious Medical History: Denies: Hx Hepatitis Past Surgical History: Reports: Hx Abdominal Surgery - hiatal hernia, Hx Breast Surgery - biopsy, Hx Cardiac Surgery - mitral valve replacement, pacemaker, stent, Hx Orthopedic Surgery - knee, Hx Pacemaker - 2010-"TOTAL HEART BLOCK". Denies: Hx Mastectomy, Hx Open Heart Surgery - Immunizations Hx Diphtheria, Pertussis, Tetanus Vaccination: No Vertical Provider Document - CONSTITUTIONAL Agree With Documented VS: Yes Notes: PHYSICAL EXAMINATION: GENERAL: Well-appearing, well-nourished and in no acute distress. HEAD: [address] with adequate wound healing and no evidence of erythema, purulence, wound dehiscence. No tenderness. EYES: Pupils equal round and reactive to light, extraocular movements intact, sclera anicteric, conjunctiva are normal. ENT: Nares patent and without discharge. oropharynx clear without exudates. No tonsilar hypertrophy or erythema. Moist mucous membranes. NECK: Normal range of motion, supple without lymphadenopathy LUNGS: Breath sounds clear to auscultation bilaterally and equal. No wheezes rales or rhonchi. HEART: Regular rate and rhythm without murmurs, rubs, gallops. NEUROLOGICAL: Cranial nerves grossly intact. Normal speech, normal gait. PSYCH: Normal mood, normal affect. SKIN: See above - INFECTION CONTROL TRAVEL OUTSIDE OF THE [place] IN LAST 30 DAYS: No Course - Re-evaluation Re-evalutation: 06/19/19 17:09 Patient is an afebrile, well-hydrated, 78-year-old female who presents for staple removal x3. Vitals are acceptable without significant tachycardia, tachypnea, or hypoxia. PE is otherwise unremarkable. Patient is nontoxic- appearing and is tolerating p.o. without difficulty. There is no evidence of superimposed infection or wound dehiscence. Gateway removed successfully without any complications. Tetanus was updated today. Low suspicion for any other systemic or emergent condition at this time. Patient to recheck with your PCM in 3 to 5 days. Return to the ED with any other worsening/concerning symptoms. Patient is in agreement. - Vital Signs Vital signs: Temp Pulse Resp BP Pulse Ox 98.3 F 77 18 162/65 H 94 06/19/19 16:31 06/19/19 16:31 06/19/19 16:31 06/19/19 16:31 06/19/19 16:31 Discharge - Discharge Clinical Impression: Removal of wally Condition: Stable Disposition: HOME, SELF-CARE Instructions: Staple Removal ([facility]) Additional Instructions: Keep the skin clean Wash with soap and water Tylenol/ibuprofen if needed Take medication as directed Monitor for any worsening symptoms Recheck with your PCM in 3-5 days Return to the ED with any worsening symptoms and/or development of fever, headache, chest pain, palpitations, syncope, shortness of breath, trouble breathing, abdominal pain, n/v/d, abscess, purulent discharge, red streaks, worsening swelling, or other worsening symptoms that are concerning to you. Forms: Elevated Blood Pressure Referrals: YULISA CLAYTON MD [Primary Care Provider] - Follow up as needed
== END 2019-06-19 17:23 | disposition home or self-care (01) ==
LOC: ER 16:23
DX: S01.01XD Laceration without foreign body of scalp, subsequent encounter (principal); W21.0 Struck by hit or thrown ball; I10 Essential (primary) hypertension
CPT/HCPCS: 90471; 90715; 99281

== ENCOUNTER → 2019-07-07 | Outpatient (CLI) | payer MEDICARE, OTHER ==
[2019-07-07 10:34] LABS: ALBUMIN 4.5 g/dL (3.5-5.0); ALKALINE PHOSPHATASE 90 U/L (38-126); ASPARTATE AMINO TRANSFERASE 32 U/L (14-36); TOTAL PROTEIN 7.7 g/dL (6.3-8.2)
[2019-07-07 10:37] LABS: BILIRUBIN,DIRECT 0.1 mg/dL (0.0-0.4); BILIRUBIN,TOTAL 0.7 mg/dL (0.2-1.3); CHOLESTEROL 194.55 mg/dL (0-200); TRIGLYCERIDES 65 mg/dL (<150)
[2019-07-07 10:45] LABS: DIRECT LDL 89 mg/dL (<100)
== END ==
LOC: OD 08:46
PROVIDERS: ATTEND Specialist
DX: I25.10 Atherosclerotic heart disease of native coronary artery without angina pectoris (principal); Z98.61 Coronary angioplasty status; Z95.2 Presence of prosthetic heart valve; I34.2 Nonrheumatic mitral (valve) stenosis; I10 Essential (primary) hypertension; Z95.0 Presence of cardiac pacemaker; I34.0 Nonrheumatic mitral (valve) insufficiency; I44.2 Atrioventricular block, complete; E78.49 Other hyperlipidemia; Z79.899 Other long term (current) drug therapy
CPT/HCPCS: 36415; 80061; 80076

== ENCOUNTER 2019-10-27 17:45 | Emergency (ER) | payer MEDICARE, OTHER ==
--- NOTE | 2019-10-27 18:56 | ER Document Report ---
ED Medical Screen (RME) - General Stated Complaint: FALL HEAD PAIN Primary Care Provider: FRANSISCO CLARK MD [Primary Care Provider] - Follow up as needed Mode of Arrival: Ambulatory Information source: Patient Notes: Patient states that she tripped over her shoes 2 days ago falling hitting her face on the bathroom floor. Patient denies any loss of consciousness nausea or vomiting. Patient with bruising and swelling to right parietal scalp area. Patient with swelling and ecchymosis to the right periorbital area and bridge of her nose. Patient denies taking any blood thinners I have greeted and performed a rapid initial assessment of this patient. A comprehensive ED assessment and evaluation of the patient, analysis of test results and completion of the medical decision making process will be conducted by additional ED providers. TRAVEL OUTSIDE OF THE [place] IN LAST 30 DAYS: No - Related Data Allergies/Adverse Reactions: benzocaine Allergy (Verified 06/19/19 17:24) ciprofloxacin [From Cipro] Allergy (Verified 06/19/19 17:24) lamotrigine [From Lamictal] Allergy (Verified 06/19/19 17:24) Penicillins Allergy (Verified 06/19/19 17:24) Sulfa (Sulfonamide Antibiotics) Allergy (Verified 06/19/19 17:24) Past Medical History - Past Medical History Cardiac Medical History: Reports: Hx Hypertension Denies: Hx Heart Attack Pulmonary Medical History: Denies: Hx Asthma Neurological Medical History: Reports: Hx Seizures - ?? HAD BLACKOUT THEN PACEMAKER PUT IN NO SEIZURE. Denies: Hx Cerebrovascular Accident Renal/ Medical History: Denies: Hx Peritoneal Dialysis GI Medical History: Reports: Hx Hiatal Hernia - SURG, Hx Ulcer. Denies: Hx Hepatitis Infectious Medical History: Denies: Hx Hepatitis Past Surgical History: Reports: Hx Abdominal Surgery - hiatal hernia, Hx Breast Surgery - biopsy, Hx Cardiac Surgery - mitral valve replacement, pacemaker, stent, Hx Orthopedic Surgery - knee, Hx Pacemaker - 2010-"TOTAL HEART BLOCK". Denies: Hx Mastectomy, Hx Open Heart Surgery - Immunizations Hx Diphtheria, Pertussis, Tetanus Vaccination: No Physical Exam - Vital signs Vitals: Temp Pulse Resp BP Pulse Ox 98.3 F 89 14 177/64 H 97 10/27/19 17:49 10/27/19 17:49 10/27/19 17:49 10/27/19 17:49 02/11/20 17:49 - General General appearance: Alert Notes: Patient with ecchymosis to right side of scalp and periorbital area, extraocular movements intact Course - Vital Signs Vital signs: Temp Pulse Resp BP Pulse Ox 98.3 F 89 14 177/64 H 97 10/27/19 17:49 10/27/19 17:49 10/27/19 17:49 10/27/19 17:49 10/27/19 17:49 Doctor's Discharge - Discharge Referrals: FRANSISCO CLARK MD [Primary Care Provider] - Follow up as needed
--- NOTE | 2019-10-27 19:32 | RADIOLOGY REPORT (SQ) ---
EXAM DESCRIPTION: CT HEAD WITHOUT COMPLETED DATE/TIME: 10/27/2019 7:22 pm REASON FOR STUDY: fall, head injury COMPARISON: 11/14/2017 TECHNIQUE: Axial images acquired through the brain without intravenous contrast. Images reviewed wi th bone, brain and subdural windows. Additional sagittal and coronal reconstructions were generated. Images stored on PACS. All CT scanners at this facility use dose modulation, iterative reconstruction, and/or weight based d osing when appropriate to reduce radiation dose to as low as reasonably achievable (ALARA). [facility]: Dose Right [facility]: CareDose [facility]: Dose Right [facility]: Teradose 4D [facility]: [employer] RADIATION DOSE: mGy. LIMITATIONS: None. FINDINGS: VENTRICLES: Normal size and contour. CEREBRUM: No masses. No hemorrhage. No midline shift. No evidence for acute infarction. Areas of l ow density in the white matter most likely chronic small vessel ischemic changes. CEREBELLUM: No masses. No hemorrhage. No alteration of density. No evidence for acute infarction. EXTRAAXIAL SPACES: No fluid collections. No masses. ORBITS AND GLOBE: No intra- or extraconal masses. Normal contour of globe without masses. CALVARIUM: No fracture. PARANASAL SINUSES: No fluid or mucosal thickening. SOFT TISSUES: Small right frontal scalp hematoma. OTHER: No other significant finding. IMPRESSION: Scalp hematoma. Chronic microvascular ischemia. No acute intracranial imaging findings . EVIDENCE OF ACUTE STROKE: NO. COMMENT: Quality ID # [id number]: Final reports with documentation of one or more dose reduction techniques (e.g., Automated exposure control, adjustment of the mA and/or kV according to patient size, use of iterative reconstruction technique) TECHNICAL DOCUMENTATION: JOB ID: [id number] 2010 [employer]- All Rights Reserved Reading location - IP/workstation name: [email or web address]
--- NOTE | 2019-10-27 19:35 | RADIOLOGY REPORT (SQ) ---
EXAM DESCRIPTION: CT FACIAL AREA WITHOUT COMPLETED DATE/TIME: 10/27/2019 7:22 pm REASON FOR STUDY: fall, facial injury COMPARISON: None. TECHNIQUE: Noncontrasted images through the facial bones and orbits windowed for bone and soft tissu e. Additional coronal and sagittal reconstructed images reviewed. All images stored on PACS. All CT scanners at this facility use dose modulation, iterative reconstruction, and/or weight based d osing when appropriate to reduce radiation dose to as low as reasonably achievable (ALARA). [facility]: Dose Right [facility]: CareDose [facility]: Dose Right [facility]: Teradose 4D [facility]: [employer] RADIATION DOSE: CT Rad equipment meets quality standard of care and radiation dose reduction techniq ues were employed. CTDIvol: 30.4 - 53.2 mGy. DLP: 1597 mGy-cm. mGy. LIMITATIONS: None. FINDINGS: FACIAL BONES: No fracture or bone lesion. ORBITS: Intact. No fracture. Symmetric intact globes and retroorbital soft tissues. PARANASAL SINUSES: Clear. No significant mucosal thickening, mass or fluid. No nasal polyps. Maxill sussy sinus outlets are patent. SOFT TISSUES: No mass or edema. INFERIOR BRAIN: See separate report for CT of the head. OTHER: No other significant finding. IMPRESSION: NO ACUTE FINDINGS. TECHNICAL DOCUMENTATION: JOB ID: [id number] Quality ID # [id number]: Final reports with documentation of one or more dose reduction techniques (e.g., Au tomated exposure control, adjustment of the mA and/or kV according to patient size, use of iterative reconstruction technique) 2010 [employer]- All Rights Reserved Reading location - IP/workstation name: [email or web address]
--- NOTE | 2019-10-27 22:38 | ER Document Report ---
HPI - HPI Time Seen by Provider: 10/27/19 22:10 Pain Level: Denies Notes: Patient states that she tripped over her shoes 2 days ago falling hitting her face on the bathroom floor. Patient denies any loss of consciousness nausea or vomiting. Patient with bruising and swelling to right parietal scalp area. Patient with swelling and ecchymosis to the right periorbital area and bridge of her nose. Patient denies taking any blood thinners - REPRODUCTIVE Reproductive: DENIES: : Past Medical History - General Information source: Patient - Social History Smoking Status: Never Smoker Frequency of alcohol use: Occasional Drug Abuse: None Family History: None Patient has suicidal ideation: No Patient has homicidal ideation: No - Past Medical History Cardiac Medical History: Reports: Hx Hypertension Denies: Hx Heart Attack Pulmonary Medical History: Denies: Hx Asthma Neurological Medical History: Reports: Hx Seizures - ?? HAD BLACKOUT THEN PACEMAKER PUT IN NO SEIZURE. Denies: Hx Cerebrovascular Accident Renal/ Medical History: Denies: Hx Peritoneal Dialysis GI Medical History: Reports: Hx Hiatal Hernia - SURG, Hx Ulcer. Denies: Hx Hepatitis Infectious Medical History: Denies: Hx Hepatitis Past Surgical History: Reports: Hx Abdominal Surgery - hiatal hernia, Hx Breast Surgery - biopsy, Hx Cardiac Surgery - mitral valve replacement, pacemaker, stent, Hx Orthopedic Surgery - knee, Hx Pacemaker - 2010-"TOTAL HEART BLOCK". Denies: Hx Mastectomy, Hx Open Heart Surgery - Immunizations Hx Diphtheria, Pertussis, Tetanus Vaccination: No Vertical Provider Document - CONSTITUTIONAL Notes: PHYSICAL EXAMINATION: GENERAL: Well-appearing, well-nourished and in no acute distress. HEAD: Patient with swelling and ecchymosis to the right periorbital area and bridge of her nose EYES: Pupils equal round and reactive to light, extraocular movements intact, conjunctiva are normal. ENT: Nares patent, oropharynx clear without exudates. Moist mucous membranes. NECK: Normal range of motion, supple without lymphadenopathy LUNGS: Breath sounds clear to auscultation bilaterally and equal. No wheezes rales or rhonchi. HEART: Regular rate and rhythm without murmurs ABDOMEN: Soft, nontender, nondistended abdomen. No guarding, no rebound. No masses appreciated. Female : deferred Musculoskeletal: Normal range of motion, no pitting or edema. No cyanosis. NEUROLOGICAL: Cranial nerves grossly intact. Normal speech, normal gait. Normal sensory, motor exams PSYCH: Normal mood, normal affect. SKIN: Warm, Dry, normal turgor, no rashes or lesions noted. - INFECTION CONTROL TRAVEL OUTSIDE OF THE [place] IN LAST 30 DAYS: No Course - Re-evaluation Re-evalutation: Facial Bones CT 10/27/19 18:54 IMPRESSION: NO ACUTE FINDINGS. Head CT 10/27/19 18:54 IMPRESSION: Scalp hematoma. Chronic microvascular ischemia. No acute intracranial imaging findings. EVIDENCE OF ACUTE STROKE: NO. Facial bone CT and head CT were both negative for any acute findings. Patient appears well, nontoxic. She has no visual changes. Patient will be discharged home in stable condition. Patient did ask for a refill on her blood pressure medications as she states that she is in between changing primary care providers. This will be provided for her. - Vital Signs Vital signs: Temp Pulse Resp BP Pulse Ox 98.3 F 89 14 177/64 H 97 10/27/19 17:49 10/27/19 17:49 10/27/19 17:49 10/27/19 17:49 10/27/19 17:49 Discharge - Discharge Clinical Impression: Encounter for medication refill Fall Qualifiers: Encounter type: initial encounter Qualified Code(s): W19.XXXA - Unspecified fall, initial encounter Condition: Stable Disposition: HOME, SELF-CARE Additional Instructions: As discussed your CAT scans were negative. Please continue taking all home medications as discussed. The bruising on your face may end up gradually moving down your face, this is not to alarm you, this is just gravity. You may apply ice packs to the area if it is uncomfortable. Please follow-up with primary care. Prescriptions: Losartan Potassium 50 mg PO DAILY #30 tablet Referrals: CHLOE PHILLIPS MD [NO LOCAL MD] - Follow up as needed
[2019-10-27 23:27] VITALS: BP 157/96
== END 2019-10-27 23:26 | disposition home or self-care (01) ==
LOC: ER 17:45
DX: S00.11XA Contusion of right eyelid and periocular area, initial encounter (principal); S00.33XA Contusion of nose, initial encounter; S00.03XA Contusion of scalp, initial encounter; W01.0XXA Fall on same level from slipping, tripping and stumbling without subsequent striking against object, initial encounter; I10 Essential (primary) hypertension; Z76.0 Encounter for issue of repeat prescription; I99.8 Other disorder of circulatory system
CPT/HCPCS: 70450; 70486; 99283